=== PATIENT | female | born 1980 | race Two or more races ===

== ENCOUNTER 2016-09-22 12:49 | Emergency (ER) | payer MEDICAID, OTHER ==
--- NOTE | 2016-09-22 15:11 | RAD ---
CHEST 2 VIEWS HISTORY: Cough and fever x4 days. Frontal and lateral chest radiographs dated 09/22/2016. COMPARISON: 01/27/2015 FINDINGS: FOCAL AIRSPACE OPACITY: Patchy airspace opacity of the lung bases with bandlike density which may reflect perifissural atelectasis. PLEURAL EFFUSION: None. CARDIOMEDIASTINAL SILHOUETTE: Nonenlarged. PNEUMOTHORAX: None identified. OSSEOUS STRUCTURES: No grossly destructive lesions. IMPRESSION: Bibasilar airspace opacity worrisome for early lower lobe pneumonia. Recommend short-term follow-up to ensure resolution.
[2016-09-22] MEDS ORDERED: DOXYCYCLINE HYCLATE 100 MG TABLET ONE (15:48)
== END 2016-09-22 16:01 | disposition home or self-care (01) ==
LOC: ED 12:49
DX: J18.9 Pneumonia, unspecified organism (principal)
CPT/HCPCS: 87880; 71020; 87804; 99283 ×2; A9270